=== PATIENT | male | born 1995 | race Caucasian/White ===

== ENCOUNTER 2019-04-28 16:03 | Emergency (ER) | payer BC ==
[2019-04-28 16:24] VITALS: BP 122/75
--- NOTE | 2019-04-28 16:41 | UC ---
Skin Complaint HPI - HPI Summary HPI Summary: tattoo left forearm 3 days ago---has worsening redness distal portion of ink-- no streaking, blistering or drainage - History of Current Complaint Chief Complaint: UCSkin Time Seen by Provider: 04/28/19 16:35 Stated Complaint: TATTOO PROBLEM Hx Obtained From: Patient Onset/Duration: Sudden Onset, Lasting Days - 1-2, Still Present Skin Exposure Onset/Duration: Days Ago - 3 Timing: Constant Pain Intensity: 1 Pain Scale Used: 0-10 Numeric Location: Discrete Character: Redness Aggravating Factor(s): Nothing Alleviating Factor(s): Nothing, Treatment [employer]: - MOHINDER (which I advised patient to stop) Associated Signs & Symptoms: Positive: Negative Related History: Other: - new tattoo - Allergy/Home Medications Allergies/Adverse Reactions: Allergies Allergy/AdvReac Type Severity Reaction Status Date / Time No Known Allergies Allergy Verified 04/28/19 16:22 PMH/Surg Hx/FS Hx/Imm Hx Previously Healthy: Yes - Surgical History Surgical History: Yes Surgery Procedure, Year, and Place: rhinoplasty. deviated septum - Family History Known Family History: Positive: None - Social History Occupation: Employed Full-time Lives: With Family Alcohol Use: Weekly Substance Use Type: Marijuana Smoking Status (MU): Never Smoked Tobacco Review of Systems All Other Systems Reviewed And Are Negative: Yes Constitutional: Positive: Negative Skin: Positive: Other - erythema Eyes: Positive: Negative ENT: Positive: Negative Respiratory: Positive: Negative Cardiovascular: Positive: Negative Gastrointestinal: Positive: Negative Genitourinary: Positive: Negative Motor: Positive: Negative Neurovascular: Positive: Negative Musculoskeletal: Positive: Negative Neurological: Positive: Negative Psychological: Positive: Negative Is Patient Immunocompromised?: No Physical Exam Triage Information Reviewed: Yes Appearance: Well-Appearing, No Pain Distress, Well-Nourished Vital Signs: Initial Vital Signs Temp 99 F 04/28/19 16:19 Pulse 93 04/28/19 16:19 Resp 16 04/28/19 16:19 BP 122/75 04/28/19 16:19 Pulse Ox 99 04/28/19 16:19 Vital Signs Reviewed: Yes Eye Exam: Normal Eyes: Positive: Conjunctiva Clear ENT Exam: Normal ENT: Positive: Normal ENT inspection, Hearing grossly normal. Negative: Trismus , Muffled voice, Hoarse voice Dental Exam: Normal Neck exam: Normal Neck: Positive: Supple, Nontender Respiratory Exam: Normal Respiratory: Positive: No respiratory distress, No accessory muscle use Cardiovascular Exam: Normal Cardiovascular: Positive: RRR, Pulses Normal, Brisk Capillary Refill Musculoskeletal Exam: Normal Musculoskeletal: Positive: Strength Intact, ROM Intact, No Edema Neurological Exam: Normal Neurological: Positive: Alert, Muscle Tone Normal Psychological Exam: Normal Skin: Positive: Other - erythema around distal portions of a 3 day old tattoo Course/Dx - Course Course Of Treatment: mild soap and water wash, bactrim, stop triple antibiodic ointment, follow with pcp prn - Diagnoses Provider Diagnosis: Cellulitis of left upper limb Discharge ED - Sign-Out/Discharge Documenting (check all that apply): Patient Departure All imaging exams completed and their final reports reviewed: No Studies - Discharge Plan Condition: Stable Disposition: HOME Prescriptions: Sulfamethox/Trimethoprim DS* [Bactrim DS 800/160 TAB*] 1 tab PO BID #14 tab Patient Education Materials: Wound Infection (ED) Referrals: [facility] [Outside] - 5 Days - Billing Disposition and Condition Condition: STABLE Disposition: Home
== END 2019-04-28 16:47 | disposition home or self-care (01) ==
LOC: UCEAST 16:03
DX: L03.114 Cellulitis of left upper limb (principal)
CPT/HCPCS: 99201; G0463

== ENCOUNTER 2019-05-07 06:33 | Emergency (ER) | payer BC ==
[2019-05-07] MEDS ORDERED: Ibuprofen TAB* 800 MG PO ONE (07:05)
--- NOTE | 2019-05-07 07:07 | ED ---
Skin Complaint - HPI Summary HPI Summary: Pt. is a 23 y.o male who presents to ER for evaluation of possible tattoo infection. Pt. notes he got a tattoo to volar aspect of left arm about a week ago. Area looked a bit red and pt. seen at [facility]. Pt. rx bactrim but states he did not take bc sxs improved. Pt. states he had dorsal aspect of arm tattooed two days ago. Today he noticed area was red, hot and painful. No past medical hx. Denies fever, N/V. Pt. notes he has had tattoos in the past without complication or reaction. Sxs are mild in severity. No current modifying factors. - History of Current Complaint Chief Complaint: EDRashSkinAbscess Time Seen by Provider: 05/07/19 06:46 Stated Complaint: INFECTION PER PT Hx Obtained From: Patient Pain Intensity: 3 - Allergy/Home Medications Allergies/Adverse Reactions: Allergies Allergy/AdvReac Type Severity Reaction Status Date / Time No Known Allergies Allergy Verified 05/07/19 06:37 PMH/Surg Hx/FS Hx/Imm Hx Previously Healthy: Yes Endocrine/Hematology History: Denies: Hx Diabetes, Hx Thyroid Disease Cardiovascular History: Denies: Hx Hypertension Respiratory History: Denies: Hx Asthma, Hx Chronic Obstructive Pulmonary Disease (COPD) GI History: Denies: Hx Ulcer - Surgical History Surgery Procedure, Year, and Place: rhinoplasty. deviated septum Infectious Disease History: No Infectious Disease History: Denies: Hx Hepatitis, Hx Human Immunodeficiency Virus (HIV), Traveled Outside the [place] in Last 30 Days - Family History Known Family History: Positive: None, Non-Contributory - Social History Occupation: Employed Full-time Lives: With Family Alcohol Use: Weekly Substance Use Type: Reports: Marijuana Smoking Status (MU): Never Smoked Tobacco Review of Systems Constitutional: Negative Negative: Fever, Chills Gastrointestinal: Negative Negative: Vomiting, Nausea Skin: Negative Positive: Other - Redness and pain to left lower arm. All Other Systems Reviewed And Are Negative: Yes Physical Exam Triage Information Reviewed: Yes Vital Signs On Initial Exam: Initial Vitals Temp Pulse Resp BP Pulse Ox 99.1 F 76 15 129/72 98 05/07/19 06:34 05/07/19 06:34 05/07/19 06:34 05/07/19 06:34 05/07/19 06:34 Vital Signs Reviewed: Yes Appearance: Positive: Well-Appearing - Pt. lying in bed in NAD. Skin: Positive: Warm, Dry Head/Face: Positive: Normal Head/Face Inspection Eyes: Positive: Normal, EOMI Neck: Positive: Supple Musculoskeletal: Positive: Other - Older healing tattoo to left lower arm on the volar aspect. On the doral aspect there is a new tattoo with slight diffuse overlying erythema and warmth. No blistering, induration or drainage. Neurological: Positive: Normal, CN Intact II-III Psychiatric: Positive: Affect/Mood Appropriate Procedures - Sedation Patient Received Moderate/Deep Sedation with Procedure: No Diagnostics - Vital Signs Vital Signs Temp Pulse Resp BP Pulse Ox 05/07/19 06:34 99.1 F 76 15 129/72 98 - Laboratory Lab Statement: Any lab studies that have been ordered have been reviewed, and results considered in the medical decision making process. Course/Dx - Course Course Of Treatment: Pt. with questionable early cellulitis vs contact dermatitis to new tattoo. Afebrile. Will place on keflex. Continue bactrim. Advised to keep are clean and dry. To f.u PCP for wound check in 2-3 days. To return to ER for increased redness, fever, or if concerned. Pt. understands and agrees with plan. - Differential Diagnoses - Skin Complaint Differential Diagnoses: Abscess, Cellulitis, Contact Dermatitis - Diagnoses Provider Diagnoses: Tattoo reaction, Cellulitis Discharge ED - Sign-Out/Discharge Documenting (check all that apply): Patient Departure - Discharge Plan Condition: Good Disposition: HOME Prescriptions: Cephalexin CAP* [Keflex CAP*] 500 mg PO BID #20 cap Ibuprofen TAB* [Motrin TAB* 800 MG] 800 mg PO Q8H #20 tab Patient Education Materials: Contact Dermatitis (ED), Cellulitis (ED) Referrals: Vickey Hankins MD [Primary Care Provider] - [facility] [Outside] Additional Instructions: Schedule an appointment with the [facility] for wound check in 2-3 days Continue bactrim as directed Keflex as directed Keep arm clean and dry Return to ER for fever, increased redness, swelling, pain or if concerned - Billing Disposition and Condition Condition: GOOD Disposition: Home
[2019-05-07 07:24] VITALS: BP 121/66
== END 2019-05-07 07:25 | disposition home or self-care (01) ==
LOC: ED 06:33
DX: L03.114 Cellulitis of left upper limb (principal); L81.8 Other specified disorders of pigmentation
CPT/HCPCS: 99282; A9270-GY